=== PATIENT | female | born 1940 | race Caucasian/White ===

== ENCOUNTER 2019-07-23 10:13 | Day surgery (SDC) | payer OTHER ==
[~2019-07-23] VITALS: Ht 170.2 cm; Wt 77.1 kg
[2019-07-23 10:39] VITALS: BP 180/71
[2019-07-23 11:12] VITALS: BP 180/71
[2019-07-23 15:09] VITALS: BP 173/64
== END 2019-07-23 14:55 | disposition home or self-care (01) ==
LOC: DS 10:13 → OR 12:00 → DS 12:00
DX: L98.8 Other specified disorders of the skin and subcutaneous tissue (principal); C44.519 Basal cell carcinoma of skin of other part of trunk; I10 Essential (primary) hypertension; E11.9 Type 2 diabetes mellitus without complications; E66.3 Overweight; I69.354 Hemiplegia and hemiparesis following cerebral infarction affecting left non-dominant side; E03.9 Hypothyroidism, unspecified; E78.00 Pure hypercholesterolemia, unspecified; Z98.890 Other specified postprocedural states; Z79.4 Long term (current) use of insulin; Z79.899 Other long term (current) drug therapy; Z68.25 Body mass index [BMI] 25.0-25.9, adult; Z79.84 Long term (current) use of oral hypoglycemic drugs
CPT/HCPCS: 82962; J0690; J2405; J2704; J3010; J3490; J7120